=== PATIENT | male | born 1950 | race American Indian/Alaskan Native ===

== ENCOUNTER 2017-01-26 11:31 | Outpatient (CLI) | payer MEDICARE, OTHER ==
--- NOTE | 2017-02-02 13:39 | XRay Report ---
Lumbar spine: Sciatica. There is a grade 1/2 anterior L4 subluxation relative to L5. No spondylolyses identified. There is anterior spondylosis from L3-L5. The L4-5 interspace is narrowed. The vertebral height is well maintained. The bones are well-mineralized. These findings are essentially unchanged compared to prior exam in October 2014. Impression: Chronic L4-5 spondylolisthesis with narrowed interspace. L3-L5 spondylosis.
== END 2017-01-26 11:32 | disposition home or self-care (01) ==
LOC: SPVIMAG 11:31
DX: M47.896 Other spondylosis, lumbar region (principal); M43.16 Spondylolisthesis, lumbar region
CPT/HCPCS: 72100

== ENCOUNTER 2018-08-15 12:00 | Outpatient (CLI) | payer MEDICARE, OTHER ==
--- NOTE | 2018-08-15 14:20 | XRay Report ---
XRAY BILATERAL HIPS AND AP PELVIS THREE VIEWS: 08/15/18 00:00:00 CLINICAL: Bilateral hip pain FINDINGS: Right: No fracture or dislocation. Mild osteoarthritis. Normal soft tissues. Left: No fracture or dislocation. Mild osteoarthritis.Normal soft tissues. The pelvic bones are intact.Normal SI joints. IMPRESSION: Mild bilateral hip osteoarthritis, left slightly worse than right.
== END 2018-08-15 12:01 | disposition home or self-care (01) ==
LOC: SPVIMAG 12:00
DX: M16.0 Bilateral primary osteoarthritis of hip (principal)
CPT/HCPCS: 73521

== ENCOUNTER 2020-06-27 11:00 | Outpatient (CLI) | payer MEDICARE, OTHER | END 2020-06-27 11:01 | disposition home or self-care (01) | LOC: SLR 11:00 | PROVIDERS: ATTEND Otolaryngology | DX: G47.30 Sleep apnea, unspecified (principal) | CPT/HCPCS: 95810 ==

== ENCOUNTER 2020-07-23 13:21 | Outpatient (CLI) | payer MEDICARE, OTHER | END 2020-07-23 13:22 | disposition home or self-care (01) | LOC: SLR 13:21 | PROVIDERS: ATTEND Otolaryngology | DX: G47.33 Obstructive sleep apnea (adult) (pediatric) (principal) | CPT/HCPCS: 95811 ==

== ENCOUNTER 2021-03-05 14:04 | Outpatient (CLI) | payer MEDICARE ==
--- NOTE | 2021-03-05 18:08 | Ultrasound Report ---
BILATERAL DIGITAL DIAGNOSTIC MAMMOGRAM WITH CAD CONVENTIONAL, 03/05/2021 LEFT LIMITED BREAST ULTRASOUND CLINICAL INFORMATION / INDICATION: Patient presents for evaluation of an area of palpable concern in the left breast. TECHNIQUE: Digital bilateral mammographic imaging was performed. Spot compression views were obtained . Limited ultrasound was performed. This examination was interpreted with the benefit of Computer-Aid ed Detection (CAD) analysis. COMPARISON: None available FINDINGS: Breast Density: The breasts are almost entirely fatty. MAMMOGRAPHIC FINDINGS: No dominant mass, suspicious calcifications, or architectural distortion in th e right breast. Corresponding with the site of palpable concern in the anterior 3:00 subareolar left breast, there is an irregular mass measuring up to approximately 2.2 cm. Targeted ultrasound was performed for furthe r evaluation. ULTRASOUND FINDINGS: Targeted ultrasound evaluation was performed of the area of interest. Targeted ultrasound of the area of palpable concern in the left breast 2:00 subareolar position, there is an irregular hypoechoic mass measuring up to 1.6 x 1.5 x 1.4 cm. Internal vascularity is demonstrated. T argeted ultrasound of the left axilla is unremarkable, with no suspicious lymphadenopathy identified. IMPRESSION: 1. An irregular hypoechoic mass at the site of palpable concern in the subareolar left breast is mode rately suggestive of malignancy, ultrasound-guided biopsy is recommended. Follow up recommendation: Biopsy BI-RADS Category 4: Suspicious for Malignancy. A "normal" or negative report should not discourage follow up or biopsy of a clinically significant f inding. A written summary of these findings will be mailed to the patient. The patient will be entered into a mammography reporting system which will generate a reminder letter for the patient's next appointmen t at the appropriate interval. According to the [employer], yearly mammograms are recommended starting at age 40 and continuing as long as a woman is in good health. Breast MRI is recommended for women with an marco a roximately 20-25% or greater lifetime risk of breast cancer, including women with a strong family his tory of breast or ovarian cancer and women who have been treated for Hodgkin's disease. Signer Name: Jackie Macdonald MD Signed: 03/05/2021 6:04 PM Workstation Name: [id number]
== END 2021-03-05 14:05 | disposition home or self-care (01) ==
LOC: MAMMO 14:04
PROVIDERS: ATTEND Urology
DX: N63.0 Unspecified lump in unspecified breast (principal); R92.8 Other abnormal and inconclusive findings on diagnostic imaging of breast
CPT/HCPCS: 77066